=== PATIENT | male | born 1960 | race Two or more races ===

== ENCOUNTER 2017-04-07 18:44 | Inpatient (IN) | payer MEDICAID, OTHER ==
[~2017-04-07] VITALS: Ht 160 cm; Wt 92.5 kg
[2017-04-07] MEDS ORDERED: ASPI-1159 PO (19:06)
[2017-04-07] MEDS ORDERED: LOSA50TA20 PO (19:06)
[2017-04-07] MEDS ORDERED: MORPHINE SULFATE 4 MG/ML CPJ (NOT FOR IM USE) IV STA (19:15)
[2017-04-07] MEDS ORDERED: ONDANSETRON HCL 4MG/2ML VIAL IV STA (19:15)
[2017-04-07 19:35] LABS: BASOPHILS % 0.7 % (0.0-2.0); EOSINOPHILS % 0.5 % (0.0-5.0); LYMPHOCYTES % 16.1 % (20.0-50.0); MEAN CORPUSCULAR HEMOGLOBIN 28.5 pg (28.0-32.0); MEAN CORPUSCULAR VOLUME 85.5 fL (80.0-94.0); MEAN PLATELET VOLUME 8.8 fl (7.4-10.4); MONOCYTES % 4.3 % (2.0-8.0); NEUTROPHILS % 78.4 % (40.0-76.0); PLATELET 285 x1000/uL (130-400); RED BLOOD CELL COUNT 4.91 mill/uL (4.7-6.1); RED CELL DISTRIBUTION WIDTH 13.9 % (11.6-14.6)
[2017-04-07 19:41] LABS: CHLORIDE 100 mEq/L (98-107)
[2017-04-07 19:42] LABS: PROTHROMBIN TIME 10.7 sec (9.4-11.6)
[2017-04-07 19:47] LABS: CARBON DIOXIDE 29 mEq/L (21-32)
[2017-04-07] MEDS ORDERED: ONDANSETRON HCL 4MG/2ML VIAL IV ONE (20:00)
[2017-04-07] MEDS ORDERED: METOCLOPRAMIDE HCL 10MG/2ML VIAL IV ONE (21:15)
[2017-04-07] MEDS ORDERED: ACETAMINOPHEN 325MG TABLET PO STA (21:54)
[2017-04-07] MEDS ORDERED: SODIUM CHLORIDE 0.9% 1000ML BAG (SEPSIS BOLUS) IV ONE (22:00)
[2017-04-07] MEDS ORDERED: MIDAZOLAM HCL 2 MG/2 ML VIAL IV ONE (22:15)
[2017-04-07] MEDS ORDERED: MORPHINE SULFATE 4 MG/ML CPJ (NOT FOR IM USE) IV ONE (22:15)
[2017-04-07] MEDS ORDERED: VANCOMYCIN 1 G PREMIX 200 ML IV SCH (22:45)
[2017-04-07] MEDS ORDERED: CEFTRIAXONE 2 G PREMIX 50 ML IV ONE (22:45)
[2017-04-07] MEDS ORDERED: POTASSIUM CHLORIDE INJ 40 MEQ in DEXT 5% WATER 250 ML IV ONE (23:00)
[2017-04-08 00:15] LABS: GLUCOSE CSF < 1 mg/dL (41-75)
[2017-04-08] MEDS ORDERED: ACETAMINOPHEN 650MG SUPP PR ONE (00:15)
[2017-04-08] MEDS ORDERED: SODIUM CHLORIDE 0.9% 1,000 ML IV SCH (00:17)
[2017-04-08] MEDS ORDERED: ACETAMINOPHEN 325MG TABLET PO PRN (00:30)
[2017-04-08] MEDS ORDERED: IBUPROFEN 600MG TABLET PO PRN (00:30)
[2017-04-08] MEDS ORDERED: MAGNESIUM/ALUMINUM HYDROXIDE/SIMETHICONE 30ML UDC PO PRN (01:00)
[2017-04-08] MEDS ORDERED: DOCUSATE SODIUM 100MG CAPSULE PO PRN (01:00)
[2017-04-08] MEDS ORDERED: KCL 20MEQ/100ML PREMIX 100 ML IV SCH (01:00)
[2017-04-08] MEDS ORDERED: VANCOMYCIN 1 G PREMIX 200 ML IV SCH (01:00)
[2017-04-08] MEDS ORDERED: ENOXAPARIN 40MG/0.4ML SYR SUBCUT SCH (01:00)
[2017-04-08] MEDS: ONDANSETRON HCL 4MG/2ML VIAL IV PRN ×5 (02:29→20:26)
[2017-04-08 04:00] VITALS: BP 112/56
[2017-04-08] MEDS ORDERED: OMEP20TA2 PO (04:31)
[2017-04-08] MEDS ORDERED: NA PHOS,M-B/NA PHOS,DI-BA ENEMA 118ML PR PRN (05:02)
[2017-04-08] MEDS: MORPHINE SULFATE 4 MG/ML CPJ (NOT FOR IM USE) IV PRN ×2 (05:50→16:08)
[2017-04-08] MEDS: DEXAMETHASONE 10 MG/ML VIAL IV SCH ×4 (05:59→23:08)
[2017-04-08] MEDS ORDERED: AMPICILLIN 1,000 MG in SODIUM CHLORIDE 0.9% 50 ML IV SCH ×2 (06:00→18:00)
[2017-04-08] MEDS ORDERED: SODIUM CHL 0.9% + KCL 20MEQ/L 1,000 ML IV SCH (06:00)
[2017-04-08] MEDS: VANCOMYCIN 1500MG in DEXTROSE 5% WATER 250ML IV SCH ×2 (06:43→17:03)
[2017-04-08 08:00] VITALS: BP 107/56
[2017-04-08] MEDS: METOPROLOL TARTRATE 25MG TABLET PO SCH ×2 (09:00→20:18)
[2017-04-08] MEDS: FAMOTIDINE 20MG/2ML VIAL IV SCH ×2 (09:16→20:18)
[2017-04-08] MEDS: ENOXAPARIN 30MG/0.3ML SYR SUBCUT SCH ×2 (09:16→20:17)
[2017-04-08] MEDS: KETOROLAC 15MG/ML VIAL IV PRN (09:43)
[2017-04-08] MEDS: CEFTRIAXONE 2 G in DEXT 5% WATER 100 ML IV SCH ×2 (11:24→23:09)
[2017-04-08] MEDS: AMPICILLIN 1,000 MG in SODIUM CHLORIDE 0.9% 50 ML IV SCH ×3 (11:40→23:09)
[2017-04-08 12:00] VITALS: BP 117/63
[2017-04-08] MEDS ORDERED: CEFTRIAXONE 2 G PREMIX 50 ML IV SCH (12:00)
[2017-04-08 14:47] LABS: CLARITY URINE CLEAR (CLEAR); COLOR URINE YELLOW (YELLOW); GLUCOSE URINE NEGATIVE (NEGATIVE); KETONES URINE NEGATIVE (NEGATIVE); LEUKOCYTE ESTERASE URINE NEGATIVE (NEGATIVE); NITRITE URINE NEGATIVE (NEGATIVE); OCCULT BLOOD URINE NEGATIVE (NEGATIVE); PROTEIN URINE TRACE (NEGATIVE); SPECIFIC GRAVITY URINE 1.019 (1.005-1.030); UROBILINOGEN URINE 0.2 E.U./dL (0.2-1.0)
[2017-04-08 15:17] LABS: *AMPHETAMINES SCREEN URINE NEGATIVE (NEGATIVE); *BARBITURATES SCREEN URINE NEGATIVE (NEGATIVE); *BENZODIAZEPINES SCREEN URINE PRESUMTIVE POSITIVE (NEGATIVE); *COCAINE SCREEN URINE NEGATIVE (NEGATIVE); CANNABINOID URINE SCREEN NEGATIVE (NEGATIVE); METHADONE URINE SCREEN NEGATIVE (NEGATIVE); OPIATES URINE SCREEN PRESUMTIVE POSITIVE (NEGATIVE); PHENCYCLIDINE URINE SCREEN NEGATIVE (NEGATIVE)
[2017-04-08 16:00] VITALS: BP 98/52
[2017-04-08] MEDS: SODIUM CHL 0.9% + KCL 20MEQ/L 1,000 ML IV SCH ×2 (16:31→23:08)
[2017-04-08 20:00] VITALS: BP 121/59
[2017-04-08] MEDS: ACETAMINOPHEN 325MG TABLET PO PRN (20:26)
[2017-04-09] VITALS: BP 109/57
[2017-04-09] MEDS: LORAZEPAM 2MG/ML CPJ IV PRN (02:06)
[2017-04-09 04:00] VITALS: BP 123/75
[2017-04-09] MEDS: MORPHINE SULFATE 4 MG/ML CPJ (NOT FOR IM USE) IV PRN ×2 (04:58→21:42)
[2017-04-09] MEDS: DEXAMETHASONE 10 MG/ML VIAL IV SCH ×2 (05:02→11:46)
[2017-04-09] MEDS: AMPICILLIN 1,000 MG in SODIUM CHLORIDE 0.9% 50 ML IV SCH ×2 (05:02→11:47)
[2017-04-09] MEDS: VANCOMYCIN 1500MG in DEXTROSE 5% WATER 250ML IV SCH ×2 (05:03→17:30)
[2017-04-09 08:00] VITALS: BP 141/64
[2017-04-09] MEDS: ENOXAPARIN 30MG/0.3ML SYR SUBCUT SCH ×2 (08:05→21:28)
[2017-04-09] MEDS: ONDANSETRON HCL 4MG/2ML VIAL IV PRN ×3 (08:10→21:46)
[2017-04-09] MEDS: KETOROLAC 15MG/ML VIAL IV PRN ×2 (08:31→15:53)
[2017-04-09 08:33] LABS: HEMATOCRIT. 35.9 % (42.0-52.0); MEAN CORPUSCULAR HEMOGLOBIN 28.7 pg (28.0-32.0); MEAN CORPUSCULAR VOLUME 86.1 fL (80.0-94.0); MEAN PLATELET VOLUME 9.7 fl (7.4-10.4); PLATELET 220 x1000/uL (130-400); RED BLOOD CELL COUNT 4.17 mill/uL (4.7-6.1); RED CELL DISTRIBUTION WIDTH 14.3 % (11.6-14.6)
[2017-04-09] MEDS: FAMOTIDINE 20MG/2ML VIAL IV SCH ×2 (08:35→21:29)
[2017-04-09] MEDS: METOPROLOL TARTRATE 25MG TABLET PO SCH ×2 (08:45→21:29)
[2017-04-09 09:04] LABS: CARBON DIOXIDE 26 mEq/L (21-32); CHLORIDE 105 mEq/L (98-107)
[2017-04-09] MEDS: SODIUM CHL 0.9% + KCL 20MEQ/L 1,000 ML IV SCH (11:47)
[2017-04-09] MEDS: CEFTRIAXONE 2 G in DEXT 5% WATER 100 ML IV SCH ×2 (11:47→23:44)
[2017-04-09 12:00] VITALS: BP 121/66
[2017-04-09 13:51] LABS: PLATELET ESTIMATE NORMAL
[2017-04-09 16:00] VITALS: BP 147/51
[2017-04-09] MEDS: AMPICILLIN 2,000 MG in SODIUM CHLORIDE 0.9% 100 ML IV SCH ×2 (16:51→21:28)
[2017-04-09 20:00] VITALS: BP 145/65
[2017-04-09] MEDS: ACETAMINOPHEN 325MG TABLET PO PRN (21:37)
[2017-04-10] VITALS: BP 154/76
[2017-04-10] MEDS: AMPICILLIN 2,000 MG in SODIUM CHLORIDE 0.9% 100 ML IV SCH ×7 (00:26→23:58)
[2017-04-10] MEDS: KETOROLAC 15MG/ML VIAL IV PRN ×2 (00:33→08:44)
[2017-04-10] MEDS: LORAZEPAM 2MG/ML CPJ IV PRN (03:06)
[2017-04-10 04:00] VITALS: BP 137/71
[2017-04-10] MEDS ORDERED: VANCOMYCIN 1 G PREMIX 200 ML IV SCH (04:00)
[2017-04-10] MEDS: GUAIFENESIN 200MG/10ML SUGAR FREE UDC PO PRN ×5 (05:44→23:52)
[2017-04-10] MEDS: SODIUM CHL 0.9% + KCL 20MEQ/L 1,000 ML IV SCH ×3 (05:44→20:34)
[2017-04-10] MEDS: MORPHINE SULFATE 4 MG/ML CPJ (NOT FOR IM USE) IV PRN ×3 (05:47→20:31)
[2017-04-10 05:52] LABS: BASOPHILS % 0.1 % (0.0-2.0); HEMATOCRIT. 34.8 % (42.0-52.0); HEMOGLOBIN. 11.5 g/dL (14.0-18.0); LYMPHOCYTES % 7.3 % (20.0-50.0); MEAN CORPUSCULAR HEMOGLOBIN 28.6 pg (28.0-32.0); MEAN CORPUSCULAR VOLUME 86.2 fL (80.0-94.0); MEAN PLATELET VOLUME 9.8 fl (7.4-10.4); MONOCYTES % 4.2 % (2.0-8.0); NEUTROPHILS % 88.4 % (40.0-76.0); PLATELET 235 x1000/uL (130-400); RED BLOOD CELL COUNT 4.03 mill/uL (4.7-6.1); RED CELL DISTRIBUTION WIDTH 14.6 % (11.6-14.6)
[2017-04-10 06:40] LABS: CARBON DIOXIDE 26 mEq/L (21-32); CHLORIDE 106 mEq/L (98-107)
[2017-04-10 08:00] VITALS: BP 146/68
[2017-04-10] MEDS: ENOXAPARIN 30MG/0.3ML SYR SUBCUT SCH ×2 (08:44→20:55)
[2017-04-10] MEDS: FAMOTIDINE 20MG/2ML VIAL IV SCH ×2 (08:44→20:55)
[2017-04-10] MEDS: METOPROLOL TARTRATE 25MG TABLET PO SCH ×2 (08:44→20:29)
[2017-04-10] MEDS: CEFTRIAXONE 2 G in DEXT 5% WATER 100 ML IV SCH ×2 (11:31→23:57)
[2017-04-10 12:00] VITALS: BP 111/56
[2017-04-10] MEDS: VANCOMYCIN 1 G PREMIX 200 ML IV SCH ×2 (13:46→22:06)
[2017-04-10 16:00] VITALS: BP 138/60
[2017-04-10 20:00] VITALS: BP 111/72
[2017-04-10] MEDS: DIPHENHYDRAMINE 50MG/ML VIAL IV PRN (23:56)
[2017-04-11] VITALS: BP 108/58
[2017-04-11 04:00] VITALS: BP 157/87
[2017-04-11] MEDS: GUAIFENESIN 200MG/10ML SUGAR FREE UDC PO PRN ×5 (04:04→21:40)
[2017-04-11] MEDS: MORPHINE SULFATE 4 MG/ML CPJ (NOT FOR IM USE) IV PRN ×2 (04:04→11:36)
[2017-04-11] MEDS: SODIUM CHL 0.9% + KCL 20MEQ/L 1,000 ML IV SCH ×3 (04:10→19:03)
[2017-04-11] MEDS: AMPICILLIN 2,000 MG in SODIUM CHLORIDE 0.9% 100 ML IV SCH ×6 (04:12→23:59)
[2017-04-11] MEDS: IPRATROPIUM/ALBUTEROL 0.5-3(2.5)MG/3ML NEB INH PRN ×2 (04:20→23:15)
[2017-04-11] MEDS: VANCOMYCIN 1 G PREMIX 200 ML IV SCH ×3 (05:44→22:32)
[2017-04-11] MEDS: FAMOTIDINE 20MG/2ML VIAL IV SCH ×2 (07:47→21:25)
[2017-04-11] MEDS: KETOROLAC 15MG/ML VIAL IV PRN ×2 (07:47→16:02)
[2017-04-11] MEDS: ENOXAPARIN 30MG/0.3ML SYR SUBCUT SCH ×2 (07:48→21:26)
[2017-04-11] MEDS: METOPROLOL TARTRATE 25MG TABLET PO SCH ×2 (07:48→21:25)
[2017-04-11 08:00] VITALS: BP 148/81
[2017-04-11 11:29] LABS: BASOPHILS % 0.3 % (0.0-2.0); HEMATOCRIT. 35.3 % (42.0-52.0); HEMOGLOBIN. 11.8 g/dL (14.0-18.0); LYMPHOCYTES % 14.9 % (20.0-50.0); MEAN CORPUSCULAR HEMOGLOBIN 28.5 pg (28.0-32.0); MEAN CORPUSCULAR VOLUME 85.5 fL (80.0-94.0); MONOCYTES % 6.9 % (2.0-8.0); NEUTROPHILS % 77.9 % (40.0-76.0); PLATELET 260 x1000/uL (130-400); RED BLOOD CELL COUNT 4.13 mill/uL (4.7-6.1); RED CELL DISTRIBUTION WIDTH 14.4 % (11.6-14.6)
[2017-04-11 12:00] VITALS: BP 139/90
[2017-04-11] MEDS: CEFTRIAXONE 2 G in DEXT 5% WATER 100 ML IV SCH ×2 (12:37→23:59)
[2017-04-11 16:00] VITALS: BP 123/66
[2017-04-11 20:00] VITALS: BP 177/98
[2017-04-11] MEDS: CLONIDINE 0.1MG TABLET PO PRN (21:25)
[2017-04-11] MEDS: DIPHENHYDRAMINE 50MG/ML VIAL IV PRN (21:40)
[2017-04-12] VITALS (7 sets, daily range): BP systolic 121–186; BP diastolic 61–92
[2017-04-12] MEDS: CLONIDINE 0.1MG TABLET PO PRN ×2 (01:03→23:09)
[2017-04-12] MEDS: DIPHENHYDRAMINE 50MG/ML VIAL IV PRN (01:10)
[2017-04-12] MEDS: GUAIFENESIN 200MG/10ML SUGAR FREE UDC PO PRN ×3 (03:02→23:08)
[2017-04-12] MEDS: LORAZEPAM 2MG/ML CPJ IV PRN (04:00)
[2017-04-12] MEDS: AMPICILLIN 2,000 MG in SODIUM CHLORIDE 0.9% 100 ML IV SCH ×5 (04:00→20:59)
[2017-04-12] MEDS: VANCOMYCIN 1 G PREMIX 200 ML IV SCH ×3 (06:10→23:21)
[2017-04-12] MEDS: KETOROLAC 15MG/ML VIAL IV PRN (06:29)
[2017-04-12 06:30] LABS: CARBON DIOXIDE 26 mEq/L (21-32); CHLORIDE 110 mEq/L (98-107)
[2017-04-12 06:54] LABS: BASOPHILS % 0.1 % (0.0-2.0); EOSINOPHILS % 0.1 % (0.0-5.0); HEMATOCRIT. 33.5 % (42.0-52.0); HEMOGLOBIN. 11.1 g/dL (14.0-18.0); LYMPHOCYTES % 27.8 % (20.0-50.0); MEAN CORPUSCULAR HEMOGLOBIN 28.5 pg (28.0-32.0); MEAN CORPUSCULAR VOLUME 85.7 fL (80.0-94.0); MONOCYTES % 10.4 % (2.0-8.0); NEUTROPHILS % 61.6 % (40.0-76.0); PLATELET 223 x1000/uL (130-400); RED BLOOD CELL COUNT 3.91 mill/uL (4.7-6.1); RED CELL DISTRIBUTION WIDTH 14.2 % (11.6-14.6)
[2017-04-12] MEDS: MORPHINE SULFATE 4 MG/ML CPJ (NOT FOR IM USE) IV PRN (08:24)
[2017-04-12] MEDS: FAMOTIDINE 20MG/2ML VIAL IV SCH ×2 (08:24→23:10)
[2017-04-12] MEDS: ENOXAPARIN 30MG/0.3ML SYR SUBCUT SCH ×2 (08:25→23:11)
[2017-04-12] MEDS: METOPROLOL TARTRATE 25MG TABLET PO SCH ×2 (08:25→23:09)
[2017-04-12] MEDS: SODIUM CHL 0.9% + KCL 20MEQ/L 1,000 ML IV SCH ×2 (10:10→20:59)
[2017-04-12] MEDS: CEFTRIAXONE 2 G in DEXT 5% WATER 100 ML IV SCH (11:21)
[2017-04-12] MEDS: NICOTINE 14MG PATCH TD SCH (23:20)
[2017-04-13] MEDS: CEFTRIAXONE 2 G in DEXT 5% WATER 100 ML IV SCH ×3 (00:56→23:57)
[2017-04-13] MEDS: AMPICILLIN 2,000 MG in SODIUM CHLORIDE 0.9% 100 ML IV SCH ×7 (01:57→23:57)
[2017-04-13] MEDS ORDERED: MORPHINE SULFATE 4 MG/ML CPJ (NOT FOR IM USE) IV PRN (02:15)
[2017-04-13] MEDS: GUAIFENESIN 200MG/10ML SUGAR FREE UDC PO PRN ×2 (03:43→12:57)
[2017-04-13 04:00] VITALS: BP 151/77
[2017-04-13] MEDS: VANCOMYCIN 1 G PREMIX 200 ML IV SCH ×3 (05:34→22:16)
[2017-04-13] MEDS: SODIUM CHL 0.9% + KCL 20MEQ/L 1,000 ML IV SCH ×3 (06:30→23:57)
[2017-04-13 07:57] VITALS: BP 170/86
[2017-04-13] MEDS: METOPROLOL TARTRATE 25MG TABLET PO SCH ×2 (09:34→21:04)
[2017-04-13] MEDS: ENOXAPARIN 30MG/0.3ML SYR SUBCUT SCH ×2 (09:34→21:05)
[2017-04-13] MEDS: FAMOTIDINE 20MG/2ML VIAL IV SCH ×2 (09:34→21:04)
[2017-04-13] MEDS: NICOTINE 14MG PATCH TD SCH (09:35)
[2017-04-13 12:29] VITALS: BP 142/68
[2017-04-13] MEDS: ONDANSETRON HCL 4MG/2ML VIAL IV PRN (12:57)
[2017-04-13 17:11] VITALS: BP 167/89
[2017-04-13 20:14] VITALS: BP 132/96
[2017-04-13] MEDS: PROMETHAZINE LIQUID 6.25MG/5ML 118ML PO PRN (21:05)
[2017-04-14] VITALS: BP 167/78
[2017-04-14] MEDS: DIPHENHYDRAMINE 50MG/ML VIAL IV PRN (00:34)
[2017-04-14] MEDS: CLONIDINE 0.1MG TABLET PO PRN ×2 (00:34→05:53)
[2017-04-14 04:00] VITALS: BP 166/83
[2017-04-14] MEDS: AMPICILLIN 2,000 MG in SODIUM CHLORIDE 0.9% 100 ML IV SCH ×3 (04:18→11:17)
[2017-04-14] MEDS: PROMETHAZINE LIQUID 6.25MG/5ML 118ML PO PRN ×2 (04:19→09:07)
[2017-04-14] MEDS: VANCOMYCIN 1 G PREMIX 200 ML IV SCH ×2 (05:53→13:06)
[2017-04-14 08:00] VITALS: BP 145/76
[2017-04-14] MEDS: NICOTINE 14MG PATCH TD SCH (09:05)
[2017-04-14] MEDS: METOPROLOL TARTRATE 25MG TABLET PO SCH (09:06)
[2017-04-14] MEDS: FAMOTIDINE 20MG/2ML VIAL IV SCH (09:06)
[2017-04-14] MEDS: ENOXAPARIN 30MG/0.3ML SYR SUBCUT SCH (09:07)
[2017-04-14] MEDS: CEFTRIAXONE 2 G in DEXT 5% WATER 100 ML IV SCH (11:17)
[2017-04-14 12:00] VITALS: BP 147/74
[2017-04-14 13:34] VITALS: BP 145/76
== END 2017-04-14 15:55 | disposition home or self-care (01) | DRG 49 ==
LOC: ER 19:20 → 7WST 04-08 00:19 → EDBEDREQ 04-08 00:29 → ENRESERV 04-08 02:32 → EDBEDREQ 04-08 02:33
PROVIDERS: ADMIT Internal Medicine; ATTEND Internal Medicine
PROC: 009U3ZX Drainage of Spinal Canal, Percutaneous Approach, Diagnostic (ICD-10-PCS; principal; 2017-04-08)
DX: G00.9 Bacterial meningitis, unspecified (principal); E43 Unspecified severe protein-calorie malnutrition; J84.9 Interstitial pulmonary disease, unspecified; D64.9 Anemia, unspecified; I10 Essential (primary) hypertension; E11.9 Type 2 diabetes mellitus without complications; E87.5 Hyperkalemia; J98.11 Atelectasis; E87.6 Hypokalemia; F17.210 Nicotine dependence, cigarettes, uncomplicated; E66.9 Obesity, unspecified; J32.0 Chronic maxillary sinusitis; Z79.899 Other long term (current) drug therapy; Z68.36 Body mass index [BMI] 36.0-36.9, adult; Z79.82 Long term (current) use of aspirin
CPT/HCPCS: 36415; 70450; 71010; 80048; 80053; 80202; 80305; 81001; 82945; 83036; 83605; 84157; 85025; 85610; 86703; 87040; 87070; 87205; 89050; 93005; 93970; 94640; 96365; 96366; 96367; 96375; 96376; 99291; J0290; J0696; J1100; J1200; J1650; J1885; J2060; J2250; J2270; J2405; J2765; J3370; J3480; J3490; J7030; J7040; J7050; J7060; J7620; Q0169; A4315